=== PATIENT | female | born 1970 | race Caucasian/White ===

== ENCOUNTER 2024-03-30 11:52 | Emergency (ER) | payer OTHER, SELFPAY ==
[2024-03-30] VITALS (10 sets, daily range): BP systolic 102–142; BP diastolic 65–85; BMI 24.0
[2024-03-30 12:29] LABS: % Basophils 0.4 % (0-2); % Eosinophils 3.2 % (0-6); % Immature Granulocytes 0.9 % (0-0.5); % Lymphocytes 22.7 % (20.5-51.1); % Monocytes 7.6 % (1.7-9.3); % Neutrophils 65.2 % (42.2-75.2); Absolute Basophils 0.1 10^3/uL (0-0.2); Absolute Eosinophils 0.5 10^3/uL (0-0.7); Absolute Immature Granulocytes 0.1 10^3/uL (0-0.05); Absolute Lymphocytes 3.1 10^3/uL (1.2-3.4); Absolute Monocytes 1.1 10^3/uL (0.1-0.6); Hematocrit 36.4 % (37.0-47.0); Hemoglobin 12.9 g/dL (12.0-16.0); Mean Corp Hgb Conc. 35.4 g/dL (33.0-37.0); Mean Corpuscular Hgb 35.5 pg (27.0-31.0); Mean Corpuscular Volume 100.3 fL (81.0-99.0); Mean Platelet Volume 9.3 fL (7.4-10.4); Nucleated Red Blood Cells % 0 %; Platelet Count 312 10^3/uL (130-400); Red Blood Cell Count 3.63 10^6/uL (4.20-5.40); Red Cell Dist. Width 11.9 % (11.5-14.5); White Blood Cell Count 13.9 10^3/uL (4.8-10.8)
[2024-03-30 12:41] LABS: ALT (SGPT) 36 U/L (0-35); AST (SGOT) 36 U/L (14-36); Albumin 3.8 g/dl (3.5-5.0); Alkaline Phosphatase 84 U/L (38-126); Blood Urea Nitrogen 11 mg/dl (7-17); Calcium 9.3 mg/dl (8.4-10.2); Carbon Dioxide 24 mmol/L (22-30); Chloride 105 mmol/L (98-107); Estimated Creatinine Clearance 62 ml/min; Glucose 120 mg/dl (70-99); Potassium 4.5 mmol/L (3.5-5.1); Sodium 140 mmol/L (135-145); Total Bilirubin 0.2 mg/dl (0.2-1.3); Total Protein 6.1 g/dl (6.3-8.2); eGFR > 60.00
--- NOTE | 2024-03-30 13:07 | ED.GENMED ---
History of Present Illness
General
Chief Complaint: Blood Pressure Problem
Source: patient
Exam Limitations: none
Time Seen by Provider: 03/30/24 12:54
History of Present Illness
History of Present Illness:
Patient currently in alcohol rehabilitation. Has been at this facility for about 2 months. Has been doing well. This morning woke up in her normal state of health. She was sitting down became clammy sweaty lightheaded diaphoretic and nauseous.
Then she had a episode of diarrhea. Followed by a near syncopal episode. No trauma. On nursing a medic arrival hypotensive and bradycardic. Was given atropine via the medics. Currently feels generally weak. Denies chest pain shortness of
breath unusual headache neurologic symptoms visual issues etc. Had an episode like this last week.
Past History
Past History
ED Past Medical History: Asthma, COPD, GERD and HTN
ED Past Surgical History: Gynecological and Orthopedic
Phy Exam
Physical Exam
Physical Exam:
GENERAL: Alert and oriented in no apparent distress
EYE: Orbits normal.
NECK: Supple, no thyroid palpable.
ENT: Pharynx without erythema
CARDIAC: Mildly bradycardic and regular no murmur.
LUNGS: Clear breath sounds,normal
ABDOMEN: Soft, without focal tenderness or distention
NEUROLOGICAL: Alert and oriented , grossly non-focal
SKIN: Warm and dry, no rash or lesion, no discoloration, skin intact.
MUSCULOSKELETAL: No edema,no deformity.Good color
PSYCH: Normal and appropriate interaction.
Course
Orders/Labs/Results
Orders:
Orders
03/30/24 12:16
Electrocardiogram (*1) Urgent
Reason for Study: Bradycardia / Tachycardia
03/30/24 12:17
EKG- Treatment ONCE
03/30/24 12:21
CMP [Comprehensive Metabolic Panel] Urgent
Complete Blood Count/With Diff Urgent
03/30/24 13:06
0.9% Sodium Chloride 1000 ml [Nss] 1,000 ml IV BOLUS
03/30/24 13:48
COVID-19 Antigen Urgent
Source: Nasal Swab
Troponin I Urgent
03/30/24 14:04
Urinalysis Reflex To Culture Urgent
Date Specimen was Collected: 03/30/24
Time Specimen was Collected: 14:02
Urine Microscopic Reflex Cult Urgent
Abnormal Lab Results
03/30/24 03/30/24
12:21 14:04
WBC 13.9 H 10^3/uL
(4.8-10.8)
RBC 3.63 L 10^6/uL
(4.20-5.40)
Hct 36.4 L %
(37.0-47.0)
MCV 100.3 H fL
(81.0-99.0)
MCH 35.5 H pg
(27.0-31.0)
Abs Immat Gran (auto) 0.1 H 10^3/uL
(0-0.05)
Absolute Neuts (auto) 9.0 H 10^3/uL
(1.4-6.5)
Absolute Monos (auto) 1.1 H 10^3/uL
(0.1-0.6)
Immature Gran % 0.9 H %
(0-0.5)
Glucose 120 H mg/dl
(70-99)
ALT 36 H U/L
(0-35)
Total Protein 6.1 L g/dl
(6.3-8.2)
Leukocyte Esterase Rfl Trace A
(Negative)
Urine Bacteria (Reflex) Few A
(Negative)
03/30/24 12:21
03/30/24 12:21
Vital Signs
Initial and Last Documented VS:
Initial Vital Signs
Temp Pulse Resp BP Pulse Ox
98 F 56 18 116/85 97
03/30/24 11:55 03/30/24 11:55 03/30/24 11:55 03/30/24 11:55 03/30/24 11:55
Last Documented Vital Signs
Temp Pulse Resp BP Pulse Ox
97.4 F 70 19 123/72 95
03/30/24 16:00 03/30/24 16:30 03/30/24 16:30 03/30/24 16:00 03/30/24 16:30
MDM/Problems Addressed
Differential Diagnosis Includes:
Patient is describing vasovagal syncope. Prodromal symptoms. Lightheaded nauseous diaphoretic. No chest pain shortness of breath pleuritic pain. Nothing to support pulmonary emboli your primary coronary artery disease. Patient does have
nonspecific EKG changes no comparison therefore we will do troponins for completeness. No neurologic symptoms. Patient does have a leukocytosis likely reactive but with a slight cough we will check an x-ray and check urine. Continuous monitoring
at this time. Will reevaluate after labs and workup.
*Pulse Oximetry
Patient hypoxic: no
*EKG
Interpreted by ED Provider?: Yes
Interpretation: abnormal
Comparison EKG: no comparison EKG present
Heart Rate: 51
Rate: bradycardiac
Rhythm: sinus
[place]: normal axis
Interval: normal interval
QRS Pattern: normal QRS
Ischemia: non-specific ST changes
*Systems Program Manager Interpretation
Rate: bradycardiac
Interpretation: abnormal
Heart Rate: 55
Rhythm: sinus
*Critical Care Note
Total Time (30-74mins, 75-104mins- exclusive of procedures): Not Applicable
Update Note
Update Note:
1500... Rechecked. Sleeping comfortably. No distress. Stable vital signs. No arrhythmias. Denies lightheadedness currently although she stated she was lightheaded recently. No infectious issues found with a leukocytosis.
1645.... Patient is remained stable and nontoxic. Feels well at this time. Description of events today all consistent with vasovagal syncope. Has a leukocytosis that is likely reactive. Clinically no infectious issues. Discharged to follow-up
ED Attending Note
-
Portions of this chart may have been created with voice recognition software.� Occasional wrong word or��sound alike� substitutions may have occurred due to the inherent limitations of voice recognition software.
Discharge Plan
Departure
Patient Disposition: Home (Routine Discharge)
Date of Disposition: 03/30/24
Time of Disposition: 16:41
Patient with high blood pressure during this ER visit?: Yes
Discharge Problem:
Near syncope
Referrals:
Alton Wisdom MD [Family Provider] - Follow up in 2-3 days
Hilton Guerra MD [Active] - Follow up in 1 week
Activity Restrictions/Additional Instructions:
For completeness I would recommend you follow-up with cardiology. I gave you a name listed
Interventions
Interventions:
*Risk Screen - Suicide Last Done: 03/30/24 12:09
*General Assessment Last Done: 03/30/24 12:09
*Neglect/Abuse Screening Last Done: 03/30/24 12:09
ED- Fall Risk Assessment Last Done: 03/30/24 12:14
*ED COVID-19 Vaccine History Last Done: 03/30/24 12:11
*Nursing Disposition Last Done: 03/30/24 17:22
ED- Cardiac Assessment Last Done: 03/30/24 12:14
ED- Neurological Assessment Last Done: 03/30/24 12:14
ED- Pulmonary Assessment Last Done: 03/30/24 12:14
Discharge Date and Time
Discharge Date/Time: 03/30/24 17:24
Print Language: [email or web address]
[2024-03-30] MEDS: NSS 1000 IV (14:02)
[2024-03-30 14:16] LABS: Urine Albumin Trace (Neg - Trace); Urine Bilirubin Negative (Negative); Urine Character Clear (Clear); Urine Color Yellow; Urine Glucose Negative (Negative); Urine Ketone Negative (Negative); Urine Leukocyte Trace (Negative); Urine Nitrite Negative (Negative); Urine Occult Blood Negative (Negative); Urine Specific Gravity 1.015 (<1.030); Urine Urobilinogen Negative (Neg - 1+)
[2024-03-30 14:36] LABS: Urine Squamous Cell >30 /LPF (Few)
[2024-03-30 14:37] LABS: Urine Bacteria Few (Negative); Urine Red Blood Cell 0-2 /HPF (0-2)
[2024-03-30 14:43] LABS: COVID-19 Antigen Negative (Negative)
[2024-03-30 14:46] LABS: Troponin I < 0.012 ng/ml
== END 2024-03-30 17:24 ==
LOC: EMR 11:52
PROVIDERS: Student in an Organized Health Care Education/Training Program; EMERGENCY PHYSICIAN Emergency Medicine; FAMILY PHYSICIAN Internal Medicine Gastroenterology
DX: R55 Syncope and collapse (principal); I10 Essential (primary) hypertension; J44.89 Other specified chronic obstructive pulmonary disease; K21.9 Gastro-esophageal reflux disease without esophagitis
CPT/HCPCS: 99285; 96360; 80053; 81003; 81015; 84484; 85025; 87811; 93005